=== PATIENT | male | born 1950 | race Caucasian/White ===

== ENCOUNTER 2018-09-25 07:47 | Observation (INO) | payer OTHER, BC ==
[~2018-09-25 07:47] MED LIST: CEFAZOLIN 1 GM INJ; LIDOCAINE 2% (SDV) 5 ML INJ; ROCURONIUM 50 MG INJ; SEVOFLURANE 15 MIN
[2018-09-25 08:37] LABS: ADD MAN DIFF? NO
[2018-09-25 08:44] LABS: BASOPHILS % 0.6 % (0.0-2.0); EOSINOPHILS # 0.2 10^3/ul (0.0-0.5); EOSINOPHILS % 2.8 % (0.0-7.0); HEMATOCRIT 43.2 % (42.0-52.0); HEMOGLOBIN 14.3 g/dl (14.0-18.0); LYMPHOCYTES # 1.5 10^3/ul (0.8-2.9); LYMPHOCYTES % 23.1 % (15.0-51.0); MEAN CORPUSCULAR HEMOGLOBIN 30.6 pg (29.0-33.0); MEAN CORPUSCULAR HGB CONC 33.1 g/dl (32.0-37.0); MEAN CORPUSCULAR VOLUME 92.3 fl (82.0-101.0); MEAN PLATELET VOLUME 9.3 fl (7.4-10.4); MONOCYTE # 0.6 10^3/ul (0.3-0.9); NEUTROPHIL # 4.1 10^3/ul (1.6-7.5); NEUTROPHILS % 64.2 % (39.0-77.0); PLATELET COUNT 249 10^3/UL (140-415); RED BLOOD COUNT 4.68 10^6/ul (4.70-6.10); RED CELL DISTRIBUTION WIDTH 12.5 % (11.5-14.5)
[2018-09-25 08:44] LABS: WHITE BLOOD COUNT 6.4 10^3/ul (4.8-10.8)
[2018-09-25 09:01] LABS: ALANINE AMINOTRANSFERASE 31 IU/L (13-69); ALBUMIN/GLOBULIN RATIO 1.21; ALKALINE PHOSPHATASE 104 IU/L (42-121); ANION GAP 7 (5-13); ASPARTATE AMINO TRANSFERASE 30 IU/L (15-46); BILIRUBIN,INDIRECT 1.3 mg/dl (0-1.1); BILIRUBIN,TOTAL 1.3 mg/dl (0.2-1.3); BLOOD UREA NITROGEN 20 mg/dl (7-20); CALCIUM 9.4 mg/dl (8.4-10.2); CARBON DIOXIDE 32 mmol/L (21-31); CHLORIDE 103 mmol/L (97-110); CREATINE KINASE 138 IU/L (23-200); CREATININE 0.72 mg/dl (0.61-1.24); Estimated GFR > 60 mL/min (>60); GLUCOSE 107 mg/dl (70-220); POTASSIUM 4.2 mmol/L (3.5-5.1); SODIUM 142 mmol/L (135-144); TOTAL PROTEIN 7.3 g/dl (6.1-8.1)
[2018-09-25 09:02] LABS: INR 0.94; PARTIAL THROMBOPLASTIN TIME 27.5 Sec (23.0-35.0); PROTIME 12.7 Sec (11.9-14.9)
[2018-09-25 09:09] LABS: CK INDEX 1.3; CK-MB 1.86 ng/ml (0.0-2.4)
[2018-09-25 09:14] LABS: TROPONIN-I < 0.012 ng/ml (0.000-0.120)
[2018-09-25] MEDS ORDERED: NACL 0.9% 3 ML SYG IV (10:00)
[2018-09-25] MEDS ORDERED: morphine 2 MG INJ IV (10:00)
[2018-09-25] MEDS ORDERED: ONDANSETRON 4 MG INJ IV ×3 (10:00→19:30)
[2018-09-25] MEDS ORDERED: OXYCODONE/ACETAMINOPHEN (5/325) TAB PO ×3 (10:00→19:30)
[2018-09-25] MEDS: DEXTROSE 5%-0.45% NACL 1,000 ML IV ×2 (10:18→20:47)
[2018-09-25] MEDS: PANTOPRAZOLE 40 MG INJ IV (10:19)
[2018-09-25] MEDS: ACETAMINOPHEN 325 MG TAB PO ×2 (11:14→15:26)
[2018-09-25] MEDS: METOPROLOL 5 MG INJ IV ×4 (12:00→23:07)
[2018-09-25] MEDS ORDERED: BUPIVACAINE 0.5% (SDV) 30 ML INJ (15:34)
[2018-09-25] MEDS ORDERED: MIDAZOLAM 1 MG/ML 2 ML INJ (15:34)
[2018-09-25] MEDS ORDERED: FENTAnyl 50 MCG/ML VIAL (15:35)
[2018-09-25] MEDS ORDERED: PROPOFOL 20 ML (15:37)
[2018-09-25] MEDS ORDERED: ACETAMINOPHEN 1000MG/100ML IV 100 ML IVPB (16:00)
[2018-09-25] MEDS: POLYMYXIN/BACITRACIN 1L IRRIG IRR (17:50)
[2018-09-25] MEDS ORDERED: ONDANSETRON 4 MG INJ (18:56)
[2018-09-25] MEDS ORDERED: DEXAMETHASONE 4 MG/ML 5 ML INJ (18:56)
[2018-09-25] MEDS ORDERED: GLYCOPYRROLATE 0.4 MG INJ (19:00)
[2018-09-25] MEDS ORDERED: NEOSTIGMINE 3 MG/3 ML SYRINGE (19:00)
[2018-09-25] MEDS ORDERED: EPHEDrine SULFATE 50 MG/5 ML SYG IV (19:30)
[2018-09-25] MEDS ORDERED: FENTAnyl 50 MCG/ML VIAL IV ×3 (19:30)
[2018-09-25] MEDS ORDERED: DIPHENHYDRAMINE 50 MG INJ IV (19:30)
[2018-09-25] MEDS ORDERED: HYDROmorphONE 1 MG/5 ML IV SYRINGE IV ×3 (19:30)
[2018-09-25] MEDS ORDERED: KETOROLAC 30 MG INJ IV (19:30)
[2018-09-25] MEDS ORDERED: MEPERIDINE 25 MG INJ IV (19:30)
[2018-09-25] MEDS ORDERED: LABETALOL HCL 20MG INJ IV (19:30)
[2018-09-25] MEDS ORDERED: hydrALAzine 20 MG INJ IV (19:30)
[2018-09-25] MEDS ORDERED: ALBUTEROL 0.083% (NEB) 2.5 MG/3 ML AMP HHN (19:30)
[2018-09-26] MEDS: PANTOPRAZOLE 40 MG INJ IV (05:05)
[2018-09-26] MEDS: METOPROLOL 5 MG INJ IV (05:05)
[2018-09-26] MEDS: DEXTROSE 5%-0.45% NACL 1,000 ML IV (05:05)
[2018-09-26 06:16] LABS: ADD MAN DIFF? NO
[2018-09-26 06:18] LABS: BASOPHILS % 0.1 % (0.0-2.0); HEMATOCRIT 41.4 % (42.0-52.0); HEMOGLOBIN 13.9 g/dl (14.0-18.0); LYMPHOCYTES # 0.7 10^3/ul (0.8-2.9); LYMPHOCYTES % 5.7 % (15.0-51.0); MEAN CORPUSCULAR HEMOGLOBIN 30.9 pg (29.0-33.0); MEAN CORPUSCULAR HGB CONC 33.6 g/dl (32.0-37.0); MEAN PLATELET VOLUME 9.6 fl (7.4-10.4); MONOCYTE # 0.4 10^3/ul (0.3-0.9); NEUTROPHIL # 11.1 10^3/ul (1.6-7.5); NEUTROPHILS % 90.8 % (39.0-77.0); PLATELET COUNT 261 10^3/UL (140-415); RED CELL DISTRIBUTION WIDTH 12.2 % (11.5-14.5)
[2018-09-26 06:18] LABS: WHITE BLOOD COUNT 12.2 10^3/ul (4.8-10.8)
[2018-09-26 06:48] LABS: ALANINE AMINOTRANSFERASE 25 IU/L (13-69); ALBUMIN 3.7 g/dl (3.3-4.9); ALBUMIN/GLOBULIN RATIO 1.37; ALKALINE PHOSPHATASE 84 IU/L (42-121); ANION GAP 7 (5-13); ASPARTATE AMINO TRANSFERASE 27 IU/L (15-46); BILIRUBIN,INDIRECT 1.2 mg/dl (0-1.1); BILIRUBIN,TOTAL 1.2 mg/dl (0.2-1.3); BLOOD UREA NITROGEN 13 mg/dl (7-20); CARBON DIOXIDE 27 mmol/L (21-31); CHLORIDE 106 mmol/L (97-110); CHOL/HDL RATIO 3.3 RATIO; CHOLESTEROL 152 mg/dl (100-200); CREATININE 0.56 mg/dl (0.61-1.24); Estimated GFR > 60 mL/min (>60); GLUCOSE 136 mg/dl (70-220); HDL CHOLESTEROL 46 mg/dl (30-78); LDL CHOLESTEROL,CALCULATED 93 mg/dl; POTASSIUM 4.1 mmol/L (3.5-5.1); SODIUM 140 mmol/L (135-144); TOTAL PROTEIN 6.4 g/dl (6.1-8.1); TRIGLYCERIDES 67 mg/dl (0-149)
[2018-09-26 07:17] LABS: THYROID STIMULATING HORMONE 0.644 MIU/L (0.465-4.680)
[2018-09-26] MEDS: LOSARTAN 25 MG TAB PO ×2 (08:04→09:00)
[2018-09-26 08:14] LABS: HEMOGLOBIN A1C 5.5 % (0-5.9)
[2018-09-26] MEDS: METOPROLOL (XL) 25 MG TAB PO (10:08)
== END 2018-09-26 11:25 | disposition home or self-care (01) ==
LOC: E/R 07:47 → MS1 09:24 → 6WM 14:39
DX: S52.572A Other intraarticular fracture of lower end of left radius, initial encounter for closed fracture (principal); I48.2 Chronic atrial fibrillation; Z79.01 Long term (current) use of anticoagulants; I42.9 Cardiomyopathy, unspecified; I11.0 Hypertensive heart disease with heart failure; I50.20 Unspecified systolic (congestive) heart failure; W01.0XXA Fall on same level from slipping, tripping and stumbling without subsequent striking against object, initial encounter; Y92.481 Parking lot as the place of occurrence of the external cause; Y99.0 Civilian activity done for income or pay; D72.829 Elevated white blood cell count, unspecified
CPT/HCPCS: 25609; 71045; 73090; 80053; 80061; 82550; 82553; 83036; 83735; 84443; 84484; 85025; 85610; 85730; 86850; 86900; 86901; 93005; 93306; 99285-25; G0378